=== PATIENT | female | born 1955 | race Two or more races ===

== ENCOUNTER 2022-04-16 09:22 | Outpatient (CLI) | payer OTHER | END 2022-04-16 09:27 | disposition home or self-care (01) | LOC: MAMO-SONO 09:22 | PROVIDERS: ATTEND Emergency Medicine Pediatric Emergency Medicine | DX: I10 Essential (primary) hypertension (principal); Z01.810 Encounter for preprocedural cardiovascular examination; E03.9 Hypothyroidism, unspecified; M54.50 Low back pain, unspecified; E78.9 Disorder of lipoprotein metabolism, unspecified; E55.9 Vitamin D deficiency, unspecified; E66.8 Other obesity; G62.9 Polyneuropathy, unspecified ==

== ENCOUNTER 2022-04-16 10:40 | Outpatient (CLI) | payer OTHER | END 2022-04-16 10:42 | disposition home or self-care (01) | LOC: NUCLEAR 10:40 | PROVIDERS: ATTEND Internal Medicine | DX: M81.0 Age-related osteoporosis without current pathological fracture (principal) ==

== ENCOUNTER 2022-08-27 07:39 | Outpatient (CLI) | payer OTHER | END 2022-08-27 07:52 | disposition home or self-care (01) | LOC: SONOGRAMA 07:39 | PROVIDERS: ATTEND Internal Medicine Gastroenterology | DX: K30 Functional dyspepsia (principal); R14.2 Eructation; E78.5 Hyperlipidemia, unspecified ==

== ENCOUNTER 2023-05-26 14:30 | Outpatient (CLI) | payer OTHER | END 2023-05-26 14:42 | disposition home or self-care (01) | LOC: MAMO-SONO 14:30 | PROVIDERS: ATTEND Internal Medicine | DX: Z12.31 Encounter for screening mammogram for malignant neoplasm of breast (principal) ==

== ENCOUNTER 2024-03-15 09:42 | Outpatient (CLI) | payer OTHER | END 2024-03-15 09:48 | disposition home or self-care (01) | LOC: SONOGRAMA 09:42 | PROVIDERS: ATTEND Obstetrics & Gynecology Obstetrics | DX: R10.2 Pelvic and perineal pain (principal) ==

== ENCOUNTER 2024-06-08 10:45 | Outpatient (CLI) | payer OTHER | END 2024-06-08 10:53 | disposition home or self-care (01) | LOC: MAMO-SONO 10:45 | PROVIDERS: ATTEND Obstetrics & Gynecology Obstetrics | DX: N64.4 Mastodynia (principal); Z12.31 Encounter for screening mammogram for malignant neoplasm of breast ==